=== PATIENT | female | born 1940 ===

== ENCOUNTER → 2024-01-21 08:03 | Outpatient (REF) | payer MEDICARE, SELFPAY | LOC: WOUND 08:03 | PROVIDERS: ATTENDING PHYSICIAN Surgery | DX: I70.232 Atherosclerosis of native arteries of right leg with ulceration of calf (principal); I70.242 Atherosclerosis of native arteries of left leg with ulceration of calf; L97.223 Non-pressure chronic ulcer of left calf with necrosis of muscle; L97.512 Non-pressure chronic ulcer of other part of right foot with fat layer exposed; I73.9 Peripheral vascular disease, unspecified | CPT/HCPCS: 99204 ==